=== PATIENT | male | born 1970 | race Caucasian/White ===

== ENCOUNTER 2024-04-14 10:29 | Inpatient (IN) | payer BC ==
[2024-04-14 10:58] VITALS: BMI 39.6
[2024-04-14] MEDS: ACETAMINOPHEN 1000 MG/100 ML BAG IVPB ONE (11:15)
[2024-04-14 11:40] LABS: BASO % 0.8 % (0-2.0); EOS % 3.5 % (0-4.5); HEMATOCRIT 45.9 % (35.4-49); HEMOGLOBIN 15.4 GM/dL (11.7-16.9); LYMPH % 21.9 % (8-40); MCH 27.4 pg (25.7-33.7); MCHC 33.6 g/dl (32.0-35.9); MEAN CELL VOLUME 81.7 fl (80-96); MONO % 6.2 % (3.8-10.2); NEUT % 67.6 % (42.8-82.8); PLATELET COUNT 217 10^3/uL (134-434); RBC 5.62 M/mm3 (4.00-5.60); RDW 14.4 % (11.9-15.9); WHITE BLOOD COUNT 7.3 K/mm3 (4.0-10.0)
[2024-04-14 12:06] LABS: POTASSIUM 4.1 mmol/L (3.5-5.1)
[2024-04-14 12:08] LABS: BLOOD UREA NITROGEN 20.7 mg/dL (7-18)
[2024-04-14 12:13] LABS: BILIRUBIN,TOTAL 0.7 mg/dL (0.2-1); TOT PROT 7.2 g/dl (6.4-8.2)
[2024-04-14] MEDS ORDERED: KETOROLAC TROMETHAMINE 15 MG/ML VIAL ONE (12:53)
[2024-04-14] MEDS: KETOROLAC TROMETHAMINE 15 MG/ML VIAL IVPUSH ONE (13:04)
[2024-04-14] MEDS: SODIUM CHLORIDE 0.9% 500 ML INFUS.BAG IV ONE (14:22)
[2024-04-14] MEDS ORDERED: DEXMEDETOMIDINE HCL 200 MCG/2 ML IVPB ONE (15:32)
[2024-04-14] MEDS ORDERED: BUPIVACAINE HCL/PF 0.5% (5MG/ML) 10 ML VIAL ONE (15:32)
[2024-04-14] MEDS ORDERED: MIDAZOLAM HCL 2 MG/2 ML SINGLE DOSE VIAL ONE (15:43)
[2024-04-14 16:18] LABS: INR 1.08 (0.83-1.09); PROTHROMBIN TIME (PATIENT) 12.2 SEC (9.7-13.0)
[2024-04-14 16:20] LABS: ACTIVATED PTT 31.5 SECONDS (25.2-36.5)
[2024-04-14] MEDS ORDERED: PROPOFOL 20 ML ONE ×2 (16:27→16:53)
[2024-04-14] MEDS ORDERED: SUCCINYLCHOLINE CHLORIDE 200 MG/10 ML SYRINGE ONE ×2 (16:28→17:50)
[2024-04-14] MEDS: ceFAZolin SODIUM 1 GM VIAL IVPB ONE (16:30)
[2024-04-14] MEDS ORDERED: ROCURONIUM BROMIDE 50 MG/5 ML SYRINGE ONE (16:53)
[2024-04-14] MEDS ORDERED: HYDROmorphone HCl 2 MG/ML VIAL ONE (17:29)
[2024-04-14] MEDS ORDERED: SUGAMMADEX SODIUM 200 MG/2 ML VIAL ONE (17:40)
[2024-04-14] MEDS: LACTATED RINGERS SOLUTION 1,000 ML IV SCH (18:37)
[2024-04-14] MEDS: ACETAMINOPHEN 1000 MG/100 ML BAG IVPB PRN (18:46)
[2024-04-14] MEDS ORDERED: ACETAMINOPHEN INJECTION 100 ML ONE (18:46)
[2024-04-14] MEDS ORDERED: HYDROmorphone *PCA* 10MG/50ML DISP.SYRIN ONE (18:49)
[2024-04-14] MEDS: HYDROmorphone *PCA* 10MG/50ML DISP.SYRIN PCA SCH ×2 (19:02→20:50)
[2024-04-14] MEDS ORDERED: ONDANSETRON 4 MG/2 ML VIAL IVPUSH PRN (19:09)
[2024-04-14] MEDS: DEXTROSE 5%-0.45% SALINE 1,000 ML IV SCH (21:24)
[2024-04-14] MEDS: DOCUSATE SODIUM 100 MG CAPSULE (FP) PO SCH (21:50)
[2024-04-15] MEDS: CEFAZOLIN 1 GM/D5W 1 GM/50 ML BAG IVPB SCH (03:14)
[2024-04-15] MEDS: LEVOTHYROXINE NA 100 MCG TABLET (FP) PO SCH (03:32)
[2024-04-15] MEDS ORDERED: LEVOTHYROXINE NA 200 MCG TABLET PO SCH ×2 (07:00→10:00)
[2024-04-15] MEDS ORDERED: KETOROLAC TROMETHAMINE 30 MG/1 ML VIAL IM PRN (07:35)
[2024-04-15 09:05] LABS: BASO % 0.2 % (0-2.0); EOS % 0.1 % (0-4.5); HEMATOCRIT 42.6 % (35.4-49); HEMOGLOBIN 14.4 GM/dL (11.7-16.9); MCH 27.8 pg (25.7-33.7); MCHC 33.7 g/dl (32.0-35.9); MEAN CELL VOLUME 82.6 fl (80-96); MEAN PLT VOLUME 8.1 fl (7.5-11.1); MONO % 5.7 % (3.8-10.2); PLATELET COUNT 240 10^3/uL (134-434); RBC 5.16 M/mm3 (4.00-5.60); RDW 14.5 % (11.9-15.9); WHITE BLOOD COUNT 10.6 K/mm3 (4.0-10.0)
[2024-04-15 09:24] LABS: POTASSIUM 4.4 mmol/L (3.5-5.1)
[2024-04-15 09:26] LABS: CALCIUM 8.1 mg/dL (8.5-10.1)
[2024-04-15 09:27] LABS: ALBUMIN 3.7 g/dl (3.4-5.0); BLOOD UREA NITROGEN 17.2 mg/dL (7-18); MAGNESIUM 2.2 mg/dL (1.8-2.4)
[2024-04-15 09:30] LABS: CREATININE 0.9 mg/dL (0.55-1.3); PHOSPHOROUS 2.8 mg/dL (2.5-4.9)
[2024-04-15 09:31] LABS: BILIRUBIN,TOTAL 0.7 mg/dL (0.2-1)
[2024-04-15 09:32] LABS: TOT PROT 6.8 g/dl (6.4-8.2)
[2024-04-15] MEDS: VALSARTAN 160 MG TABLET PO SCH (09:56)
[2024-04-15] MEDS: HYDROCHLOROTHIAZIDE 12.5 MG CAPSULE (FP) PO SCH (09:57)
[2024-04-15] MEDS: ASPIRIN 325 MG TABLET PO SCH (09:57)
[2024-04-15] MEDS: oxyCODONE HCL 10 MG SUSTAINED ACTING TABLET PO SCH (12:13)
[2024-04-15] MEDS: ACETAMINOPHEN 1000 MG/100 ML BAG IVPB SCH (12:15)
[2024-04-15] MEDS: KETOROLAC TROMETHAMINE 30 MG/1 ML VIAL IVPUSH SCH (12:26)
[2024-04-15] MEDS: SENNOSIDES 8.8 MG/5 ML SYRUP PO SCH (21:14)
[2024-04-16 09:45] LABS: HEMATOCRIT 38.6 % (35.4-49); HEMOGLOBIN 12.6 GM/dL (11.7-16.9); MCH 27.3 pg (25.7-33.7); MCHC 32.6 g/dl (32.0-35.9); MEAN CELL VOLUME 83.7 fl (80-96); MEAN PLT VOLUME 8.4 fl (7.5-11.1); PLATELET COUNT 208 10^3/uL (134-434); RBC 4.61 M/mm3 (4.00-5.60); RDW 14.4 % (11.9-15.9); WHITE BLOOD COUNT 8.6 K/mm3 (4.0-10.0)
[2024-04-16 10:11] LABS: POTASSIUM 3.9 mmol/L (3.5-5.1)
[2024-04-16 10:17] LABS: CALCIUM 7.8 mg/dL (8.5-10.1)
[2024-04-16 10:20] LABS: BLOOD UREA NITROGEN 18.6 mg/dL (7-18)
[2024-04-16 10:22] LABS: CREATININE 0.7 mg/dL (0.55-1.3)
[2024-04-16] MEDS: PANTOPRAZOLE 40 MG TABLET PO SCH (11:46)
[2024-04-16] MEDS: POLYETHYLENE GLYCOL (HEALTHYLAX) 3350 17 GM PACKET PO SCH (11:47)
[2024-04-16] MEDS: HYDROmorphone HCL CARPU-JECT 2 MG/1 ML DISP.SYRIN IVPB ONE (13:14)
[2024-04-16] MEDS: oxyCODONE HCL 5 MG TABLET PO SCH (14:55)
[2024-04-16] MEDS: ACETAMINOPHEN 325 MG TABLET (FP) PO SCH (16:58)
[2024-04-16] MEDS: NAPROXEN 250 MG TABLET PO SCH (21:19)
[2024-04-17] MEDS: oxyCODONE HCL 5 MG TABLET PO ONE (07:16)
[2024-04-17 08:53] LABS: HEMATOCRIT 38.4 % (35.4-49); HEMOGLOBIN 12.4 GM/dL (11.7-16.9); MCH 27.2 pg (25.7-33.7); MCHC 32.2 g/dl (32.0-35.9); MEAN CELL VOLUME 84.5 fl (80-96); MEAN PLT VOLUME 8.1 fl (7.5-11.1); PLATELET COUNT 220 10^3/uL (134-434); RBC 4.54 M/mm3 (4.00-5.60); RDW 14.3 % (11.9-15.9); WHITE BLOOD COUNT 9.1 K/mm3 (4.0-10.0)
[2024-04-17 09:10] LABS: CALCIUM 7.9 mg/dL (8.5-10.1)
[2024-04-17 09:14] LABS: BLOOD UREA NITROGEN 15.6 mg/dL (7-18); CREATININE 0.7 mg/dL (0.55-1.3)
[2024-04-17] MEDS: oxyCODONE HCL 5 MG TABLET PO PRN (12:05)
[2024-04-17] MEDS: BISACODYL 10 MG SUPP.RECT PR PRN (12:12)
[2024-04-17] MEDS: NAPROXEN 500 MG TABLET PO SCH (13:17)
[2024-04-17] MEDS: SODIUM PHOSPHATE/NA BIPHOS 133 ML ENEMA RC ONE (17:11)
[2024-04-18] MEDS ORDERED: METHYLNALTREXONE BROMIDE 8 MG/0.4 ML SYRINGE SQ ONE (09:00)
[2024-04-18 11:11] LABS: HEMATOCRIT 39.7 % (35.4-49); HEMOGLOBIN 13.1 GM/dL (11.7-16.9); MCH 27.6 pg (25.7-33.7); MEAN CELL VOLUME 83.7 fl (80-96); PLATELET COUNT 246 10^3/uL (134-434); RBC 4.74 M/mm3 (4.00-5.60); RDW 14.4 % (11.9-15.9)
[2024-04-18 11:19] LABS: POTASSIUM 4.2 mmol/L (3.5-5.1)
[2024-04-18 11:47] LABS: CALCIUM 8.3 mg/dL (8.5-10.1)
[2024-04-18 11:49] LABS: BLOOD UREA NITROGEN 19.9 mg/dL (7-18)
[2024-04-18 11:51] LABS: CREATININE 0.7 mg/dL (0.55-1.3)
[2024-04-18] MEDS: oxyCODONE HCL 5 MG TABLET PO SCH (13:05)
[2024-04-18] MEDS: METHYLNALTREXONE BROMIDE 8 MG/0.4 ML SYRINGE SQ ONE (14:22)
[2024-04-19 20:23] VITALS: RESP 18
[2024-04-20 15:20] VITALS: BP 138/58; PULSE 67; TEMP 97.7
== END 2024-04-20 14:53 | DRG 502 ==
LOC: JER 10:29 → JERBED 14:02 → J6S 21:03
PROVIDERS: ADMIT Internal Medicine; ATTEND Internal Medicine
PROC: 0LQL0ZZ Repair Right Upper Leg Tendon, Open Approach (ICD-10-PCS; 2024-04-14)
PROC: 0LQM0ZZ Repair Left Upper Leg Tendon, Open Approach (ICD-10-PCS; principal; 2024-04-14 16:00)
DX: S76.112A Strain of left quadriceps muscle, fascia and tendon, initial encounter (principal); S76.111A Strain of right quadriceps muscle, fascia and tendon, initial encounter; I10 Essential (primary) hypertension; E03.9 Hypothyroidism, unspecified; W17.89XA Other fall from one level to another, initial encounter; Y93.9 Activity, unspecified; Y92.099 Unspecified place in other non-institutional residence as the place of occurrence of the external cause; Y99.9 Unspecified external cause status; K59.00 Constipation, unspecified
CPT/HCPCS: 36415; 73552-TC-LT-FY; 73552-TC-RT-FY; 73562-TC-LT-FY; 73562-TC-RT-FY; 73590-TC-LT-FY; 73590-TC-RT-FY; 80048; 80053; 83735; 84100; 85025; 85027; 85610; 85730; 86850; 86900; 86901; 93005; 93010; 94760; 97116-GP; 97163-GP; 99285-25; J0131